=== PATIENT | female | born 1935 | race Caucasian/White ===

== ENCOUNTER 2018-10-08 07:49 | Inpatient (IN) ==
[2018-10-08] MEDS ORDERED: HYDROmorphone 2 MG/1 ML VIAL IV STA (08:12)
[2018-10-08] MEDS ORDERED: ONDANSETRON 4 MG/2 ML VIAL IV STA (08:12)
[2018-10-08 09:14] LABS: Basophils # 0.1 10*3/uL (0.0-0.2); Basophils % 0.4 % (0.0-0.8); Eosinophils # 0.3 10*3/uL (0.0-0.87); Eosinophils % 2.2 % (0.00-10.9); Hematocrit 37.7 VOL% (35.7-47.0); Hemoglobin 12.3 GM/DL (12.0-16.0); Immature Granulocytes % 0.4 %; Immature Granulocytes Absolute 0.05 #; Lymphocytes # 0.7 10*3/uL (1.4-4.0); Mean Corpuscular HGB Conc 32.6 GM/DL (32-36); Mean Corpuscular Volume 94.7 FL (87-102); Mean Platelet Volume 9.8 FL (9.6-12.0); Monocytes % 4.2 % (1.7-12.7); Neutrophils % 86.8 % (38.7-73.9); Platelet Count 161 T/CUMM (130-400); Red Blood Count 3.98 MC/CUMM (3.8-5.5); Red Cell Distribution Width 13.2 % (9.3-17.3); White Blood Count 11.3 T/CUMM (4-12)
[2018-10-08] MEDS ORDERED: ACETAMINOPHEN 325 MG TABLET PO PRN (09:29)
[2018-10-08] MEDS ORDERED: ONDANSETRON 4 MG/2 ML VIAL IV PRN (09:29)
[2018-10-08] MEDS ORDERED: DOCUSATE SODIUM 100 MG CAPSULE PO PRN (09:29)
[2018-10-08] MEDS ORDERED: SODIUM CHLORIDE 0.9% 1,000 ML IV SCH (09:30)
[2018-10-08 09:34] LABS: Albumin 3.6 G/DL (3.4-5.0); Calcium 8.9 MG/DL (8.5-10.1); Osmolality,Calculated 282.1 MOS/KG (273-304); Total Protein 6.3 G/DL (6.4-8.3)
[2018-10-08 09:40] LABS: Apearance,Urine Slightly Hazy (Clear); Bacteria,Urine Moderate /HPF (Few); Bilirubin,Urine Negative (Negative); Blood, Urine Small mg/dL (Negative); Glucose,Urine (UA) Negative (Negative); Ketones,Urine 5 mg/dL (Negative); Mucus,Urine Occasional /LPF (Occasional); Nitrite,Urine Negative (Negative); Protein,Urine Negative; RBC,Urine 1 /HPF (0-4); Squamous Epithelial Cell,Urine Occasional /HPF (0-10); Urine Color Amber (Yellow); Urine Specific Gravity 1.015 (1.001-1.035); Urine Urobilinogen < 2.0 EU/DL (0.2-1.0); WBC,Urine 6 /HPF (0-6)
[2018-10-08 09:41] LABS: PT Patient Result 10.7 SECS; Partial Thromboplastin Time 30.5 SECS (0-40)
[2018-10-08] MEDS: HYDROmorphone 2 MG/1 ML VIAL IV PRN ×2 (13:43→22:41)
[2018-10-08] MEDS: METOPROLOL TARTRATE 25 MG TABLET PO SCH ×2 (16:38→21:07)
[2018-10-08] MEDS: LACTATED RINGERS 1,000 ML IV SCH (17:14)
[2018-10-08] MEDS: rOPINIRole 1 MG TABLET PO SCH (21:07)
[2018-10-09] MEDS: HYDROmorphone 2 MG/1 ML VIAL IV PRN ×2 (03:45→10:26)
[2018-10-09] MEDS: LACTATED RINGERS 1,000 ML IV SCH ×3 (03:46→21:36)
[2018-10-09 04:52] LABS: Basophils % 0.3 % (0.0-0.8); Eosinophils # 0.3 10*3/uL (0.0-0.87); Eosinophils % 2.5 % (0.00-10.9); Hematocrit 38.6 VOL% (35.7-47.0); Hemoglobin 12.6 GM/DL (12.0-16.0); Immature Granulocytes % 0.4 %; Immature Granulocytes Absolute 0.04 #; Lymphocytes # 0.8 10*3/uL (1.4-4.0); Lymphocytes % 7.2 % (21.3-54.2); Mean Corpuscular HGB Conc 32.6 GM/DL (32-36); Mean Platelet Volume 10.4 FL (9.6-12.0); Monocytes % 4.9 % (1.7-12.7); Neutrophils % 84.7 % (38.7-73.9); Platelet Count 142 T/CUMM (130-400); Red Blood Count 4.02 MC/CUMM (3.8-5.5); Red Cell Distribution Width 13.3 % (9.3-17.3); White Blood Count 10.9 T/CUMM (4-12)
[2018-10-09 05:12] LABS: Osmolality,Calculated 278.4 MOS/KG (273-304)
[2018-10-09] MEDS ORDERED: CLINDAMYCIN INJ 900 MG in PREMIX 1 EACH IV ONE (07:00)
[2018-10-09] MEDS ORDERED: VANCOMYCIN INJ 1,000 MG in SODIUM CHLORIDE 0.9% 250 ML IV ONE (07:00)
[2018-10-09] MEDS ORDERED: POTASSIUM CHLORIDE RIDER 10 MEQ in PREMIX 1 EACH IV SCH (08:30)
[2018-10-09] MEDS ORDERED: BACITRACIN OINT 0.9 GM PACK TOP ONE (11:18)
[2018-10-09] MEDS ORDERED: TRANEXAMIC ACID 1,000 MG/10 ML VIAL ONE (11:18)
[2018-10-09] MEDS ORDERED: ePHEDrine 50 MG/ML AMP ONE (15:02)
[2018-10-09] MEDS ORDERED: ONDANSETRON 4 MG/2 ML VIAL ONE (15:02)
[2018-10-09] MEDS ORDERED: DEXAMETHASONE 4 MG/1 ML VIAL ONE (15:02)
[2018-10-09] MEDS ORDERED: SEVOFLURANE 1 UNIT/15 MINUTE INH ONE (15:02)
[2018-10-09] MEDS ORDERED: GLYCOPYRROLATE 0.4 MG/2 ML VIAL ONE (15:02)
[2018-10-09] MEDS ORDERED: ROCURONIUM 100 MG/10 ML VIAL IV ONE (15:02)
[2018-10-09] MEDS ORDERED: PHENYLEPHRINE 1 MG/10 ML SYRINGE IV ONE (15:02)
[2018-10-09] MEDS ORDERED: ETOMIDATE 40 MG/20 ML VIAL IV ONE (15:02)
[2018-10-09] MEDS ORDERED: fentaNYL 100 MCG/2 ML VIAL ONE (15:02)
[2018-10-09] MEDS ORDERED: LACTATED RINGERS 1,000 ML IV ONE (15:03)
[2018-10-09] MEDS ORDERED: NEOSTIGMINE 10 MG/10 ML VIAL ONE (15:03)
[2018-10-09] MEDS ORDERED: MORPHINE 4 MG/1 ML VIAL IV PRN (15:12)
[2018-10-09] MEDS ORDERED: MAGNESIUM HYDROXIDE SUSP 30 ML UDCUP PO PRN (15:12)
[2018-10-09] MEDS: METOPROLOL TARTRATE 25 MG TABLET PO SCH (21:29)
[2018-10-09] MEDS: rOPINIRole 1 MG TABLET PO SCH (21:30)
[2018-10-09] MEDS: CLINDAMYCIN INJ 900 MG in PREMIX 1 EACH IV SCH (21:34)
[2018-10-10] MEDS: CITALOPRAM 40 MG TABLET PO SCH ×2 (01:16→09:01)
[2018-10-10] MEDS: DILTIAZEM CD 300 MG CAPSULE PO SCH ×2 (01:16→09:01)
[2018-10-10] MEDS: MULTIVITAMIN (CENTRUM) TABLET PO SCH ×2 (01:17→09:01)
[2018-10-10] MEDS: PANTOPRAZOLE 40 MG TABLET PO SCH ×2 (01:18→09:02)
[2018-10-10] MEDS: METOPROLOL TARTRATE 25 MG TABLET PO SCH ×3 (01:18→20:48)
[2018-10-10] MEDS: rOPINIRole 1 MG TABLET PO SCH ×3 (01:18→20:48)
[2018-10-10] MEDS: LACTATED RINGERS 1,000 ML IV SCH (01:22)
[2018-10-10] MEDS: MORPHINE 4 MG/1 ML VIAL IV PRN ×3 (02:33→14:14)
[2018-10-10] MEDS: CLINDAMYCIN INJ 900 MG in PREMIX 1 EACH IV SCH (04:28)
[2018-10-10 04:31] LABS: Eosinophils % 0.4 % (0.00-10.9); Hematocrit 27.3 VOL% (35.7-47.0); Hemoglobin 9.1 GM/DL (12.0-16.0); Immature Granulocytes % 0.3 %; Immature Granulocytes Absolute 0.03 #; Lymphocytes # 0.5 10*3/uL (1.4-4.0); Lymphocytes % 5.3 % (21.3-54.2); Mean Corpuscular HGB Conc 33.3 GM/DL (32-36); Mean Corpuscular Volume 93.5 FL (87-102); Mean Platelet Volume 10.4 FL (9.6-12.0); Monocytes % 5.8 % (1.7-12.7); Neutrophils % 88.2 % (38.7-73.9); Platelet Count 145 T/CUMM (130-400); Red Blood Count 2.92 MC/CUMM (3.8-5.5); Red Cell Distribution Width 13.3 % (9.3-17.3); White Blood Count 9.6 T/CUMM (4-12)
[2018-10-10 04:52] LABS: Calcium 8.1 MG/DL (8.5-10.1); Osmolality,Calculated 281.3 MOS/KG (273-304)
[2018-10-10] MEDS: APIXABAN 2.5 MG TABLET PO SCH ×2 (09:02→20:48)
[2018-10-10] MEDS: POTASSIUM CHLORIDE 20 MEQ TABLET PO SCH ×2 (15:30→18:39)
[2018-10-11 05:03] LABS: Basophils % 0.2 % (0.0-0.8); Eosinophils # 0.3 10*3/uL (0.0-0.87); Eosinophils % 3.6 % (0.00-10.9); Hematocrit 25.5 VOL% (35.7-47.0); Hemoglobin 8.4 GM/DL (12.0-16.0); Immature Granulocytes % 0.3 %; Immature Granulocytes Absolute 0.03 #; Lymphocytes # 0.9 10*3/uL (1.4-4.0); Lymphocytes % 9.1 % (21.3-54.2); Mean Corpuscular HGB Conc 32.9 GM/DL (32-36); Mean Corpuscular Volume 95.1 FL (87-102); Mean Platelet Volume 10.9 FL (9.6-12.0); Monocytes % 8.9 % (1.7-12.7); Neutrophils % 77.9 % (38.7-73.9); Platelet Count 157 T/CUMM (130-400); Red Blood Count 2.68 MC/CUMM (3.8-5.5); Red Cell Distribution Width 13.5 % (9.3-17.3); White Blood Count 9.5 T/CUMM (4-12)
[2018-10-11 05:32] LABS: Calcium 8.5 MG/DL (8.5-10.1); Osmolality,Calculated 278.4 MOS/KG (273-304)
[2018-10-11] MEDS ORDERED: CIPROFLOXACIN 500 MG TABLET PO SCH (10:00)
[2018-10-11] MEDS: rOPINIRole 1 MG TABLET PO SCH (10:35)
[2018-10-11] MEDS: APIXABAN 2.5 MG TABLET PO SCH (10:38)
[2018-10-11] MEDS: METOPROLOL TARTRATE 25 MG TABLET PO SCH (10:38)
[2018-10-11] MEDS: CITALOPRAM 40 MG TABLET PO SCH (10:38)
[2018-10-11] MEDS: PANTOPRAZOLE 40 MG TABLET PO SCH (10:39)
[2018-10-11] MEDS: MULTIVITAMIN (CENTRUM) TABLET PO SCH (10:39)
[2018-10-11] MEDS: DILTIAZEM CD 300 MG CAPSULE PO SCH (10:40)
[2018-10-11 12:03] VITALS: BP 115/51
== END 2018-10-11 14:35 | disposition swing bed (61) | DRG 470 ==
LOC: EDUNIT# → EDBD → N.ED 07:49 → N.EDINP 09:28 → SUATTDRO 09:28 → N.2E 16:05 → N.3E 10-09 12:19
PROVIDERS: ADMIT Internal Medicine; ATTEND Family Medicine